=== PATIENT | male | born 1950 | race Caucasian/White ===

== ENCOUNTER 2018-02-16 14:19 | Emergency (ER) | payer MEDICARE ==
[~2018-02-16] VITALS: Ht 175.3 cm; Wt 79.5 kg
[2018-02-16 14:19] VITALS: TEMP 96.8
[2018-02-16] MEDS ORDERED: AMBIEN 10MG10 MG PO (14:41)
[2018-02-16] MEDS ORDERED: NEURONTIN100 MG/CAP PO (14:45)
[2018-02-16] MEDS ORDERED: PRAVACHOL 40MG40 MG PO (14:46)
[2018-02-16] MEDS ORDERED: ALEVE 220MG220 MG PO (14:46)
[2018-02-16 14:57] LABS: PROTHROMBIN TIME 11.9 SECONDS (9.7-12.8)
[2018-02-16 15:02] LABS: ALBUMIN 4.1 gm/dL (3.5-5.0); BASO # 0.1 (0.0-0.2); BASO % 0.6 % (0.0-2.0); CALCIUM 9.7 mg/dL (8.4-10.2); CREATININE, serum 0.91 mg/dL (0.66-1.25); EOS # 0.2 (0.0-0.7); EOS % 1.4 % (0-4.0); GRAN # 7.9 (1.4-6.5); GRAN % 63.7 % (42.2-75.2); HEMATOCRIT 40.9 % (42.0-52.0); HEMOGLOBIN 14.3 g/dl (13.5-18.0); LYMPH % 24.3 % (20.0-51.0); MEAN CELL VOLUME 91 fl (80.0-100.0); MEAN CORPUSCULAR HEMOGLOBIN 32 pg (27.0-31.0); MEAN CORPUSCULAR HGB CONC 35 g/dl (33.0-37.0); MONO # 1.2 (0.1-0.6); MONO % 9.7 % (1.7-9.3); PLATELET COUNT 213 K/mm3 (130-400); POTASSIUM 3.7 mmol/L (3.4-5.0); RED BLOOD COUNT 4.51 M/mm3 (4.20-5.60); REDCELL DISTRIBUTION WIDTH-CV 12.5 % (11.5-14.5); TOTAL PROTEIN 7.9 gm/dL (6.4-8.2)
[2018-02-16 15:05] VITALS: BP 137/88; PULSE 93
[2018-02-16 15:18] LABS: TROPONIN-I 1.29 ng/mL (0.000-0.034)
== END 2018-02-16 15:50 ==
LOC: COL.ER 14:19
PROVIDERS: Emergency Medicine
DX: I21.3 ST elevation (STEMI) myocardial infarction of unspecified site (principal); I45.9 Conduction disorder, unspecified; R55 Syncope and collapse; E78.00 Pure hypercholesterolemia, unspecified
CPT/HCPCS: J0461; J1644; J2405; J7030

== ENCOUNTER → 2018-05-30 | Outpatient (CLI) | payer SELFPAY ==
[~2018-05-30] MED LIST: ALEVE 220MG220 MG PO; AMBIEN 10MG10 MG PO; NEURONTIN100 MG/CAP PO; PRAVACHOL 40MG40 MG PO
== END | disposition home or self-care (01) ==
LOC: COL.CR 12:11
DX: Z02.89 Encounter for other administrative examinations (principal)

== ENCOUNTER 2018-11-26 14:43 | Outpatient (RCR) | payer SELFPAY | END 2018-11-27 | disposition home or self-care (01) | LOC: COL.CR | DX: Z02.89 Encounter for other administrative examinations (principal) ==

== ENCOUNTER 2019-02-22 15:41 | Outpatient (RCR) | payer SELFPAY | END 2019-02-26 | disposition still patient (30) | LOC: COL.CR | DX: Z02.89 Encounter for other administrative examinations (principal) ==

== ENCOUNTER 2019-05-24 14:10 | Outpatient (RCR) | payer SELFPAY | END 2019-05-28 | disposition home or self-care (01) | LOC: COL.CR | DX: Z02.89 Encounter for other administrative examinations (principal) ==

== ENCOUNTER 2019-08-26 15:22 | Outpatient (RCR) | payer SELFPAY | END 2019-08-27 | disposition home or self-care (01) | LOC: COL.CR | DX: Z02.89 Encounter for other administrative examinations (principal) ==

== ENCOUNTER 2019-11-22 13:00 | Outpatient (RCR) | payer SELFPAY | END 2019-11-26 | disposition home or self-care (01) | LOC: COL.CR | DX: Z02.89 Encounter for other administrative examinations (principal) ==

== ENCOUNTER 2019-12-09 15:44 | Outpatient (RCR) | payer SELFPAY | END 2020-02-25 | disposition home or self-care (01) | LOC: COL.CR | DX: Z02.89 Encounter for other administrative examinations (principal) ==

== ENCOUNTER 2020-05-20 16:07 | Outpatient (RCR) | payer SELFPAY | END 2020-05-21 | disposition home or self-care (01) | LOC: COL.CR | DX: Z02.89 Encounter for other administrative examinations (principal) ==

== ENCOUNTER 2020-08-19 15:15 | Outpatient (RCR) | payer SELFPAY | END 2020-08-20 | disposition home or self-care (01) | LOC: COL.CR | DX: Z02.89 Encounter for other administrative examinations (principal) ==

== ENCOUNTER 2020-11-20 14:47 | Outpatient (RCR) | payer SELFPAY | END 2020-11-22 | disposition home or self-care (01) | LOC: COL.CR | DX: Z02.89 Encounter for other administrative examinations (principal) ==

== ENCOUNTER 2021-02-19 17:05 | Outpatient (RCR) | payer SELFPAY | END 2021-02-21 | disposition home or self-care (01) | LOC: COL.CR | DX: Z02.89 Encounter for other administrative examinations (principal) ==

== ENCOUNTER 2021-12-13 14:31 | Outpatient (RCR) | payer SELFPAY | END 2021-12-23 | LOC: COL.CR | DX: Z29.8 Encounter for other specified prophylactic measures (principal) ==

== ENCOUNTER 2022-01-19 15:12 | Outpatient (RCR) | payer SELFPAY | END 2022-01-22 | LOC: COL.CR | DX: Z29.8 Encounter for other specified prophylactic measures (principal) ==

== ENCOUNTER 2022-02-18 15:30 | Outpatient (RCR) | payer SELFPAY | END 2022-02-22 | LOC: COL.CR | DX: Z29.8 Encounter for other specified prophylactic measures (principal) ==

== ENCOUNTER 2022-03-23 14:40 | Outpatient (RCR) | payer SELFPAY | END 2022-03-24 | LOC: COL.CR | DX: Z29.8 Encounter for other specified prophylactic measures (principal) ==

== ENCOUNTER 2022-04-22 14:48 | Outpatient (RCR) | payer SELFPAY | END 2022-04-24 | LOC: COL.CR | DX: Z29.8 Encounter for other specified prophylactic measures (principal) ==

== ENCOUNTER → 2022-05-25 | Outpatient (RCR) | payer SELFPAY | LOC: COL.CR | DX: Z29.8 Encounter for other specified prophylactic measures (principal) ==

== ENCOUNTER 2022-10-24 15:14 | Outpatient (RCR) | payer MEDICARE, BC | END 2022-10-25 | disposition home or self-care (01) | LOC: COL.CR | DX: Z48.812 Encounter for surgical aftercare following surgery on the circulatory system (principal); Z98.61 Coronary angioplasty status ==

== ENCOUNTER 2022-11-04 14:48 | Outpatient (RCR) | payer MEDICARE, BC | END 2022-11-04 14:49 | disposition home or self-care (01) | LOC: COL.CR 14:48 | DX: Z48.812 Encounter for surgical aftercare following surgery on the circulatory system (principal); Z98.61 Coronary angioplasty status ==